=== PATIENT | male | born 1945 | race Caucasian/White ===

== ENCOUNTER 2017-01-16 16:45 | Inpatient (IN) | payer MEDICARE, OTHER ==
[2017-01-16] MEDS ORDERED: XANAX1 M1 PO (18:03)
[2017-01-16] MEDS ORDERED: ASPIRIN325 M3 PO (18:03)
[2017-01-16] MEDS ORDERED: TRICOR145 M2 PO (18:04)
[2017-01-16] MEDS ORDERED: LIPITOR80 M1 PO (18:04)
[2017-01-16] MEDS ORDERED: FLOMAX0.4 M1 PO (18:05)
[2017-01-16] MEDS ORDERED: FISH OIL 11000 MG/CA PO (18:05)
[2017-01-16] MEDS ORDERED: HYDROCODON-ACE1 EA16 PO (18:06)
[2017-01-16] MEDS ORDERED: ISOSORBIDE MONO30 M4 PO (18:07)
[2017-01-16] MEDS ORDERED: SYNTHROID175 MC1 PO (18:07)
[2017-01-16] MEDS ORDERED: TYLENOL EXTRA500 M1 PO (18:08)
[2017-01-16] MEDS ORDERED: NITROGLYCERIN0.4 M2 SL (18:09)
[2017-01-16] MEDS ORDERED: OMEPRAZOLE40 M2 PO (18:13)
[2017-01-16] MEDS ORDERED: NORCO 5-325 TA1 EACH PO (18:13)
[2017-01-16] MEDS ORDERED: OXYBUTYNIN CHLOR5 M2 PO (18:14)
[2017-01-16] MEDS ORDERED: RANEXA500 M1 PO (18:14)
[2017-01-16] MEDS ORDERED: REMERON15 M1 PO (18:15)
[2017-01-16] MEDS ORDERED: TOPROL XL25 M1 PO (18:15)
[2017-01-16] MEDS ORDERED: ZANAFLEX4 M2 PO (18:17)
[2017-01-16] MEDS ORDERED: ZOLOFT100 M1 PO (18:17)
[2017-01-16] MEDS ORDERED: DELTASONE20 MG PO (18:18)
[2017-01-16 20:52] LABS: PROTHROMBIN TIME 11.9 SECONDS (9.0-13.6)
[2017-01-16 21:09] LABS: ALB/GLOB RATIO 0.8 (0.8-2.0); ALBUMIN 2.9 g/dl (3.5-5.0); ALKALINE PHOSPHATASE 56 U/L (33-138); ALT/SGPT 46 U/L (12-78); BILIRUBIN,TOTAL 0.2 mg/dl (0.0-1.5); BLOOD UREA NITROGEN 22 mg/dl (6-24); CALCIUM 8.7 mg/dl (8.5-10.5); CARBON DIOXIDE-VENOUS 22 mmol/L (22-32); CHLORIDE 104 mmol/l (96-110); CREATININE 0.75 mg/dl (0.60-1.30); GLUCOSE 184 mg/dL (70-110); SODIUM 139 mmol/L (135-145); eGFR VALUE FOR BLACK >90 mL/Min
[2017-01-16 21:10] LABS: ANION GAP 17 mmol/L (0-20); AST/SGOT 21 U/L (10-40)
[2017-01-16 21:25] LABS: PROCALCITONIN <0.05 ng/ml (0.05-0.09)
[2017-01-16 23:20] LABS: URINE BILIRUBIN NEGATIVE (NEG); URINE BLOOD NEGATIVE (NEG); URINE GLUCOSE (UA) NEGATIVE (NEG); URINE KETONE NEGATIVE (NEG); URINE LEUKOCYTE ESTERASE POSITIVE (NEG); URINE NITRITE NEGATIVE (NEG); URINE PH 6.5 (5.0-8.0); URINE PROTEIN SMALL (NEG)
[2017-01-16 23:25] LABS: URINE APPEARANCE HAZY; URINE COLOR YELLOW
[2017-01-16 23:28] LABS: URINE AMORPHOUS 3+; URINE BACTERIA 1+; URINE EPITHELIAL CELLS RARE /[HPF] (0-10); URINE MUCUS 3+; URINE RBC 0 /[HPF] (0-5)
[2017-01-17 04:49] LABS: BASO % 0.2 % (0-2); EOS % 1.9 % (0-7); EOSINOPHIL ABSOLUTE COUNT 0.3 tho/cmm (0.0-0.7); HCT-HEMATOCRIT 41.5 % (36.0-53.5); HGB-HEMOGLOBIN 14.1 gm/dl (13.5-17.0); IMMATURE GRANULOCYTES ABSOLUTE 0.19 tho/cmm (0-0.03); IMMATURE GRANULOCYTES PERCENT 1.3 % (0-0.3); LYMPH % 24.9 % (20-45); LYMPH ABSOLUTE COUNT 3.8 tho/cmm (0.8-4.5); MCV (MEAN CELL VOLUME) 97.2 fl (82.0-96.0); MONO % 7.3 % (0-12); MONOCYTE ABSOLUTE COUNT 1.1 tho/cmm (0.0-1.2); NEUTROPHIL ABSOLUTE COUNT 9.7 tho/cmm (1.6-8.0); NEUTROPHIL-AUTOMATED 9.7 tho/cmm (1.6-8.0); NEUTROPHILS % 64.4 % (40-80); PLATELET COUNT 325 tho/cmm (150-450); RED BLOOD COUNT 4.27 mil/cmm (4.40-5.70); RED CELL DISTRIBUTION WIDTH 12.1 % (12.4-16.4); WHITE BLOOD COUNT 15.1 tho/cmm (4.0-10.0)
[2017-01-17 05:30] LABS: ANION GAP 13 mmol/L (0-20); BLOOD UREA NITROGEN 21 mg/dl (6-24); CALCIUM 8.3 mg/dl (8.5-10.5); CARBON DIOXIDE-VENOUS 24 mmol/L (22-32); CHLORIDE 107 mmol/l (96-110); CREATININE 0.59 mg/dl (0.60-1.30); GLUCOSE 98 mg/dL (70-110); POTASSIUM 3.5 mmol/L (3.7-5.1); SODIUM 140 mmol/L (135-145); eGFR VALUE FOR BLACK >90 mL/Min
[2017-01-17] MEDS ORDERED: BUPROPION XL300 M1 PO (13:46)
[2017-01-18 04:41] LABS: BASO % 0.1 % (0-2); EOS % 1.8 % (0-7); EOSINOPHIL ABSOLUTE COUNT 0.3 tho/cmm (0.0-0.7); HCT-HEMATOCRIT 41.6 % (36.0-53.5); HGB-HEMOGLOBIN 13.8 gm/dl (13.5-17.0); IMMATURE GRANULOCYTES ABSOLUTE 0.25 tho/cmm (0-0.03); IMMATURE GRANULOCYTES PERCENT 1.8 % (0-0.3); LYMPH % 24.6 % (20-45); LYMPH ABSOLUTE COUNT 3.3 tho/cmm (0.8-4.5); MCH (MEAN CORPUSCULAR HGB) 32.8 pg (28.0-32.0); MCHC MEAN CORPUSCULAR HGB CONC 33.2 % (32.0-36.0); MCV (MEAN CELL VOLUME) 98.8 fl (82.0-96.0); MEAN PLATELET VOLUME 11.4 cmc (9.4-12.4); MONO % 7.9 % (0-12); MONOCYTE ABSOLUTE COUNT 1.1 tho/cmm (0.0-1.2); NEUTROPHIL ABSOLUTE COUNT 8.6 tho/cmm (1.6-8.0); NEUTROPHIL-AUTOMATED 8.6 tho/cmm (1.6-8.0); NEUTROPHILS % 63.8 % (40-80); PLATELET COUNT 335 tho/cmm (150-450); RED BLOOD COUNT 4.21 mil/cmm (4.40-5.70); RED CELL DISTRIBUTION WIDTH 12.4 % (12.4-16.4); WHITE BLOOD COUNT 13.6 tho/cmm (4.0-10.0)
[2017-01-18 04:42] LABS: INR 0.9 INR (0.9-1.1); PROTHROMBIN TIME 10.5 SECONDS (9.0-13.6)
[2017-01-19 05:26] LABS: BASO % 0.2 % (0-2); EOS % 2.5 % (0-7); EOSINOPHIL ABSOLUTE COUNT 0.3 tho/cmm (0.0-0.7); HGB-HEMOGLOBIN 12.7 gm/dl (13.5-17.0); IMMATURE GRANULOCYTES ABSOLUTE 0.23 tho/cmm (0-0.03); IMMATURE GRANULOCYTES PERCENT 1.9 % (0-0.3); LYMPH % 26.8 % (20-45); LYMPH ABSOLUTE COUNT 3.2 tho/cmm (0.8-4.5); MCH (MEAN CORPUSCULAR HGB) 32.2 pg (28.0-32.0); MCHC MEAN CORPUSCULAR HGB CONC 32.6 % (32.0-36.0); MCV (MEAN CELL VOLUME) 98.7 fl (82.0-96.0); MEAN PLATELET VOLUME 11.3 cmc (9.4-12.4); MONO % 7.8 % (0-12); MONOCYTE ABSOLUTE COUNT 0.9 tho/cmm (0.0-1.2); NEUTROPHIL ABSOLUTE COUNT 7.3 tho/cmm (1.6-8.0); NEUTROPHIL-AUTOMATED 7.3 tho/cmm (1.6-8.0); NEUTROPHILS % 60.8 % (40-80); PLATELET COUNT 322 tho/cmm (150-450); RED BLOOD COUNT 3.95 mil/cmm (4.40-5.70); RED CELL DISTRIBUTION WIDTH 12.3 % (12.4-16.4); WHITE BLOOD COUNT 12.1 tho/cmm (4.0-10.0)
[2017-01-19 05:33] LABS: ANION GAP 11 mmol/L (0-20); BLOOD UREA NITROGEN 16 mg/dl (6-24); CALCIUM 8.4 mg/dl (8.5-10.5); CARBON DIOXIDE-VENOUS 27 mmol/L (22-32); CHLORIDE 106 mmol/l (96-110); CREATININE 0.62 mg/dl (0.60-1.30); GLUCOSE 96 mg/dL (70-110); POTASSIUM 3.7 mmol/L (3.7-5.1); SODIUM 140 mmol/L (135-145); eGFR VALUE FOR BLACK >90 mL/Min
--- NOTE | 2017-01-19 16:32 | NUR ---
VIRTUAL CARE NOTE: PT AWAKE, RESTING IN BED, DAUGHTER AT BEDSIDE. DISCUSSSED PAIN MANAGEMENT, PT STATES PAIN TOLERABLE AT THIS TIME PT STATES "IV WENT BAD SO WE ARE JUST DOING ORAL PAIN PILLS" PT/DAUGHTER WONDER ABOUT ALTERNATIVE/ADDITIONAL PAIN MEDICATION- MAR REVIEWED AND ORDERS DISCUSSED, ADDITIONAL PAIN TX DISCUSSED, EMILIO RN NOTIFIED, PAGE PLACED TO BISHNU NAIR FOR ADDITIONAL OPTIONS FOR PAIN SINCE PT DOES NOT HAVE IV ACCESS AND PT REQUESTING PAIN PILLS FREQUENTLY. PT/FAMILY VERBALIZE UNDERSTANDING AND DENY ADDITIONAL QUESTIONS/CONCERNS AT THIS TIME. VN WILL CONTINUE TO MONITOR ELECTRONIC RECORD AND FOLLOW W/ PT
--- NOTE | 2017-01-19 19:38 | NUR ---
VIRTUAL CARE NOTE: PT. IS IN BED, STATES PAIN IS BETTER WITH THE MEDICATION CHANGES FROM PRIOR. DENIES FURTHER QUESTIONS OR NEEDS AT THIS TIME. INSTRUCTED TO CALL FOR FURTHER NEEDS AND PT. STATES VERBAL AGREEMENT AND EXPLAINS HE IS ABLE TO USE THE CALL LIGHT WITH HIS FEET.
[2017-01-20 06:03] LABS: BASO % 0.2 % (0-2); EOS % 2.2 % (0-7); EOSINOPHIL ABSOLUTE COUNT 0.3 tho/cmm (0.0-0.7); HCT-HEMATOCRIT 40.5 % (36.0-53.5); HGB-HEMOGLOBIN 13.8 gm/dl (13.5-17.0); IMMATURE GRANULOCYTES ABSOLUTE 0.23 tho/cmm (0-0.03); IMMATURE GRANULOCYTES PERCENT 1.8 % (0-0.3); LYMPH % 22.5 % (20-45); LYMPH ABSOLUTE COUNT 2.9 tho/cmm (0.8-4.5); MCH (MEAN CORPUSCULAR HGB) 33.3 pg (28.0-32.0); MCHC MEAN CORPUSCULAR HGB CONC 34.1 % (32.0-36.0); MCV (MEAN CELL VOLUME) 97.6 fl (82.0-96.0); MEAN PLATELET VOLUME 11.3 cmc (9.4-12.4); MONOCYTE ABSOLUTE COUNT 1.4 tho/cmm (0.0-1.2); NEUTROPHILS % 62.3 % (40-80); PLATELET COUNT 299 tho/cmm (150-450); RED BLOOD COUNT 4.15 mil/cmm (4.40-5.70); RED CELL DISTRIBUTION WIDTH 12.3 % (12.4-16.4); WHITE BLOOD COUNT 12.9 tho/cmm (4.0-10.0)
--- NOTE | 2017-01-20 09:17 | NUR ---
VIRTUAL CARE NOTE: PT RESTING ON BED, STATES HAVING PAIN ON HIS BACK. PAIN TX HX REVIEWED, PAIN MANAGMENT DISCUSSED WITH PT. PT HAS BEEN TAKING ROXICODONE, STATES THIS MED HELPS WITH HIS PAIN, ENCOURAGED PT TO STAY AHEAD OF THE PAIN, EXPLAIN THE PAIN TX ORDER WHEN IS THE NEXT PAIN PILL DUE. DISCHARGE PLAN DISCUSSED PT STATES DOES NOT WANT TO GO HOME IF PAIN IS NOT CONTROLLED. ENCOURAGED PT TO DISCUSSED ANY FURTHER CONCERNS WITH VN OR PROVIDERS IF PT STILL HAVING ISSUE WITH PAIN CONTROL. PT DENIES ANY NEEDS AT THIS TIME.
[2017-01-21 04:46] LABS: BASO % 0.2 % (0-2); EOS % 1.2 % (0-7); EOSINOPHIL ABSOLUTE COUNT 0.2 tho/cmm (0.0-0.7); HCT-HEMATOCRIT 42.1 % (36.0-53.5); HGB-HEMOGLOBIN 13.9 gm/dl (13.5-17.0); IMMATURE GRANULOCYTES ABSOLUTE 0.25 tho/cmm (0-0.03); IMMATURE GRANULOCYTES PERCENT 1.9 % (0-0.3); LYMPH % 23.1 % (20-45); MCH (MEAN CORPUSCULAR HGB) 32.5 pg (28.0-32.0); MCV (MEAN CELL VOLUME) 98.4 fl (82.0-96.0); MONO % 10.4 % (0-12); MONOCYTE ABSOLUTE COUNT 1.3 tho/cmm (0.0-1.2); NEUTROPHIL ABSOLUTE COUNT 8.1 tho/cmm (1.6-8.0); NEUTROPHIL-AUTOMATED 8.1 tho/cmm (1.6-8.0); NEUTROPHILS % 63.2 % (40-80); PLATELET COUNT 339 tho/cmm (150-450); RED BLOOD COUNT 4.28 mil/cmm (4.40-5.70); RED CELL DISTRIBUTION WIDTH 12.5 % (12.4-16.4); WHITE BLOOD COUNT 12.8 tho/cmm (4.0-10.0)
--- NOTE | 2017-01-22 16:02 | NUR ---
VIRTUAL CARE NOTE: VISITED W/ PT AT THIS TIME. FAMILY AT BEDSIDE. AWAITING NEUROSURGEON ROUNDS. DID CALL THE NEUROSURGEON TO CHECK ON TIME FOR ROUNDING AND CALLED PATHOLOGY DEPT TO MAKE SURE WE HAD A FINALIZED COPY OF THE PATH REPORT FOR THE SURGEON WHO WILL BE ROUNDING SOON. PT HAS NO FURTHER QUESTIONS OTHER THAN VOICING CONCERN THAT HE WANTS TO MAKE SURE HIS BACK PAIN IS TREATED BEFORE HE DISCHARGES. HE STATES HE WILL DISCUSS THESE CONCERNS WITH THE SURGEON WHEN HE ROUNDS. WILL CONTINUE TO MONITOR. ELECTRONIC CHART REVIEWED.
[2017-01-22] MEDS ORDERED: MIRALAX17 G2 PO (17:13)
[2017-01-22] MEDS ORDERED: STOP THE FOLLOWING: (17:13)
[2017-01-22] MEDS ORDERED: NEURONTIN300 M1 PO (17:36)
[2017-02-28] MEDS ORDERED: SENNA LAX8.6 M2 PO (14:34)
[2017-02-28] MEDS ORDERED: OXYCONTIN10 M2 PO (14:34)
[2017-02-28] MEDS ORDERED: DURAGESIC1 EAC4 TOP (14:35)
[2017-02-28] MEDS ORDERED: PRESERVISION A1 EAC3 PO (14:35)
[2017-03-07] MEDS ORDERED: PERCOCET 7.5-31 EAC1 PO (10:17)
[2017-03-07] MEDS ORDERED: ULTRAM50 M1 PO (10:17)
[2017-03-07] MEDS ORDERED: ZOFRAN4 M2 PO (10:34)
[2017-03-12] MEDS ORDERED: RANEXA500 M1 PO (19:44)
[2017-03-12] MEDS ORDERED: KEFLEX500 M4 PO (19:51)
[2017-03-12] MEDS ORDERED: TYLENOL325 M2 PO (19:53)
[2017-03-12] MEDS ORDERED: WELLBUTRIN XL300 M3 PO (20:01)
[2017-03-12] MEDS ORDERED: LASIX20 M1 PO (20:03)
[2017-03-12] MEDS ORDERED: KLOR-CON 1010 ME1 PO (20:03)
[2017-03-13] MEDS ORDERED: PLAVIX75 M1 PO (11:21)
[2017-03-13] MEDS ORDERED: CARDURA4 M1 PO (11:25)
== END 2017-01-22 18:26 | DRG 983 ==
LOC: CAR1 16:45 → 5WD 01-17 00:07
PROVIDERS: Hospitalist; Internal Medicine; Radiology Diagnostic Radiology; ADMIT Hospitalist
PROC: 009 Central Nervous System and Cranial Nerves, Drainage (ICD-10-PCS; principal; 2017-01-18)
DX: R10.9 Unspecified abdominal pain (principal); I10 Essential (primary) hypertension; E78.5 Hyperlipidemia, unspecified; N40.0 Benign prostatic hyperplasia without lower urinary tract symptoms; D72.829 Elevated white blood cell count, unspecified
CPT/HCPCS: A9577; J0360; J1170; J2250; J2405; J3010; J7030; J7512